=== PATIENT | female | born 1960 | race Two or more races ===

== ENCOUNTER 2019-07-10 12:02 | Emergency (ER) | payer BC ==
[2019-07-10 12:19] VITALS: BMI 27.2
--- NOTE | 2019-07-10 12:19 | PDOC ---
Rapid Medical Evaluation Time Seen by Provider: 07/10/19 12:15 Medical Evaluation: 07/10/19 12:15 I have performed a brief in-person evaluation of this patient. The patient presents with a chief complaint of: "not feeling well like I'm going to faint x month, worse today, feel weak" Hx of HTN. Denies CP/SOB/ vertigo, f/n/v/d Pertinent physical exam findings: well appearing, tachy to 115 I have ordered the following: labs The patient will proceed to the ED for further evaluation. Discharge Disposition - Diagnosis Weakness - Referrals - Patient Instructions - Post Discharge Activity
[2019-07-10 13:07] LABS: BASO % 0.9 % (0-2.0); EOS % 1.7 % (0-4.5); HEMATOCRIT 44.5 % (32.4-45.2); HEMOGLOBIN 14.9 GM/dL (10.7-15.3); LYMPH % 40.7 % (8-40); MCH 31.1 pg (25.7-33.7); MCHC 33.4 g/dl (32.0-36.0); MEAN CELL VOLUME 93.2 fl (80-96); MEAN PLT VOLUME 7.7 fl (7.5-11.1); MONO % 8.5 % (3.8-10.2); NEUT % 48.2 % (42.8-82.8); PLATELET COUNT 341 K/MM3 (134-434); RBC 4.78 M/mm3 (3.60-5.2); WHITE BLOOD COUNT 5.7 K/mm3 (4.0-10.0)
[2019-07-10 13:28] LABS: ALBUMIN 4.1 g/dl (3.4-5.0); BILIRUBIN,TOTAL 0.6 mg/dL (0.2-1); BLOOD UREA NITROGEN 13.5 mg/dL (7-18); CALCIUM 9.6 mg/dL (8.5-10.1); POTASSIUM 3.6 mmol/L (3.5-5.1); TOT PROT 7.4 g/dl (6.4-8.2)
--- NOTE | 2019-07-10 13:30 | PDOC ---
History of Present Illness - General Chief Complaint: Lightheaded Stated Complaint: WEAKNESS Time Seen by Provider: 07/10/19 12:15 History Source: Patient Exam Limitations: No Limitations - History of Present Illness Initial Comments: 07/10/19 13:30 Janel Evangelista is a 58F with PMH HTN on HCTZ 12.5mg presenting with an episode of lightheadedness this morning. 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 After walking back upstairs and before sitting down at her desk, she felt an episode of lightheadedness. Denies chest pain, SOB, room-spinning vertigo, muscle weakness, fever, abd pain, urinary symptoms, N/V, C/D. Generally feels much better at this time. Had an episode very similar to this last month, went to see her PMD who referred her to a career development specialist, but she has not had a chance to go. Denies other PMH other than HTN, on HCTZ 12.5mg for the last few years without dose changes, has tolerated well. Says she is eating and drinking without issues , no report of weight loss. Had a tooth implant a few weeks ago that is not yet completed, periodically had L ear sensation of something inside ear. Past History - Past Medical History Allergies/Adverse Reactions: Allergies Allergy/AdvReac Type Severity Reaction Status Date / Time No Known Allergies Allergy Verified 07/10/19 12:19 COPD: No HTN: Yes - Immunization History Immunization Up to Date: No - Psycho Social/Smoking Cessation Hx Smoking History: Never smoked Have you smoked in the past 12 months: No Information on smoking cessation initiated: No Hx Alcohol Use: No Drug/Substance Use Hx: No Review of Systems - Review of Systems Constitutional: No: Symptoms Reported HEENTM: No: Symptoms Reported Respiratory: No: Symptoms reported Cardiac (ROS): Yes: Lightheadedness. No: Chest Pain, Irregular Heart Rate, Palpitations, Syncope ABD/GI: No: Constipated, Diarrhea, Nausea, Vomiting : No: Symptoms Reported Musculoskeletal: No: Symptoms Reported Integumentary: No: Symptoms Reported Neurological: No: Headache, Numbness, Paresthesia, Weakness Endocrine: No: Symptoms Reported Hematologic/Lymphatic: No: Symptoms Reported All Other Systems: Reviewed and Negative *Physical Exam - Vital Signs Last Vital Signs Temp Pulse Resp BP Pulse Ox 98.0 F 115 H 16 168/99 99 07/10/19 12:16 07/10/19 12:16 07/10/19 12:16 07/10/19 12:16 07/10/19 12:16 - Physical Exam General Appearance: Yes: Nourished, Appropriately Dressed. No: Apparent Distress HEENT: positive: EOMI, YOUSIF, Normal ENT Inspection, Normal Voice, Symmetrical, Pharynx Normal. negative: Photophobia, Scleral Icterus (R), Scleral Icterus (L) , Pharyngeal Erythema, Tonsillar Exudate Neck: positive: Normal Thyroid, Supple. negative: Tender, Lymphadenopathy (R), Lymphadenopathy (L) Respiratory/Chest: positive: Lungs Clear, Normal Breath Sounds. negative: Chest Tender, Respiratory Distress, Accessory Muscle Use, Crackles, Rales, Rhonchi, Stridor Cardiovascular: positive: Regular Rhythm, Regular Rate Gastrointestinal/Abdominal: positive: Normal Bowel Sounds, Flat, Soft. negative : Tender, Organomegaly Musculoskeletal: positive: Normal Inspection Extremity: positive: Normal Capillary Refill, Normal Inspection, Normal Range of Motion. 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 NML intact, Fully Oriented, Alert, Normal Mood/ Affect, Normal Response, Motor Strength 5/5, Other (gait normal to tiptoe and heel gait) ED Treatment Course - LABORATORY CBC & Chemistry Diagram: 07/10/19 12:46 07/10/19 12:46 - ADDITIONAL ORDERS Additional order review: Laboratory Results 07/10/19 12:46 Sodium 140 Potassium 3.6 Chloride 104 Carbon Dioxide 25 Anion Gap 10 BUN 13.5 Creatinine 1.0 Est GFR (CKD-EPI)AfAm 70.91 Est GFR (CKD-EPI)NonAf 61.19 Random Glucose 131 H Calcium 9.6 Total Bilirubin 0.6 AST 16 ALT 29 Alkaline Phosphatase 94 Total Protein 7.4 Albumin 4.1 07/10/19 12:46 RBC 4.78 MCV 93.2 MCHC 33.4 RDW 13.0 MPV 7.7 Neutrophils % 48.2 Lymphocytes % 40.7 H Monocytes % 8.5 Eosinophils % 1.7 Basophils % 0.9 Medical Decision Making - Medical Decision Making 07/10/19 13:30 Janel Evangelista is a 58F with PMH HTN on HCTZ 12.5mg presenting with an episode of lightheadedness this morning. Presentation concerning for cardiac etiology i.e. arrhythmia vs. GA vs. PE. Given tachycardia, concerned for PE in particular, unable to PERC out 2/2 age, tachycardia places patient at low risk by [place], good candidate for d-dimer. Neurological symptoms less likely, no neurological symptoms concerning. Most likely dehydration vs. malnutrition vs. orthostatic hypotension. Evaluated already via: CMP CBC CP ECG Given 1L NS for tachycardia. 07/10/19 15:30 Tachycardia improved to 90s. Ordered d-dimer. All other labs and UA WNL. Needs 2nd trop and can likely be discharged home with cards f/u. 07/10/19 16:54 3 hour troponin also negative. D-dimer 354, WNL. Discussed results with patient and gave referral to career development specialist Dr. Jimenez. Patient understand importance of f/u. Discussed etiologies of weakness, including dehydration, malnutrition, orthostatics. Patient concerned about anxiety, requests calming pill. Advised that we are still unclear of etiology of weakness, needs cardiology workup and can be prescribed anxiolytics if medical causes ruled out. Patient accepts this plan and is stable for discharge home with card f/u. Discharge - Discharge Information Problems reviewed: Yes Clinical Impression/Diagnosis: Weakness Condition: Stable Disposition: HOME - Admission No - Follow up/Referral Referrals: Darryl Jimenez MD [Staff Physician] - - Patient Discharge Instructions Patient Printed Discharge Instructions: DI for Syncope in Adults (Fainting) Additional Instructions: Today you were evaluated for an episode of lightheadedness. We have done blood labs that do not show any evidence of anemia, infection, or electrolyte abnormalities. Your ECG does now show evidence of a heart attack at this time. You urine does not show any evidence of a UTI or other issue. Your lightheadedness is either related to an underlying heart disease or dehydration. Please remember to stay hydrated, and we have included a referral to see a career development specialist Dr. Jimenez. Please follow-up with your primary doctor in the next 3 days for further care, and with your career development specialist in the next 7 days. If you experience chest pain, shortness of breath, dizziness, lose consciousness, fever, abdominal pain, or any other new or concerning symptoms, please return to the emergency room immediately. - Post Discharge Activity
[2019-07-10] MEDS ORDERED: SODIUM CHLORIDE 1,000 ML IV STA (14:39)
[2019-07-10 15:17] LABS: URINE APPEARANCE CLEAR; URINE BILIRUBIN NEGATIVE (NEGATIVE); URINE COLOR YELLOW; URINE GLUCOSE (UA) NEGATIVE (NEGATIVE); URINE KETONE NEGATIVE (NEGATIVE); URINE LEUK ESTERASE NEGATIVE (NEGATIVE); URINE NITRITE NEGATIVE (NEGATIVE); URINE PROTEIN NEGATIVE (NEGATIVE); URINE UROBILINOGEN 0.2 mg/dL (0.2-1.0)
--- NOTE | 2019-07-10 15:34 | PDOC ---
Documentation entered by Anna Chamberlain SCRIBE, acting as scribe for Eliana Blackburn MD. Eliana Blackburn MD: This documentation has been prepared by the Bulmaro diaz Adrianna, SCRIBE, under my direction and personally reviewed by me in its entirety. I confirm that the documentation accurately reflects all work, treatment, procedures, and medical decision making performed by me. Attending Attestation - Resident Resident Name: Oscar Felipe - ED Attending Attestation I have performed the following: I have examined & evaluated the patient, The case was reviewed & discussed with the resident, I agree w/resident's findings & plan, Exceptions are as noted - HPI HPI: The patient is a 58 year old female, with a significant PMH of HTN, who presents to the ED for evaluation of pre-syncopal episode earlier today. Patient notes she was sitting down at work earlier today, when she suddenly felt lightheaded, as if she was going to pass out. She denies any LOC and can fully recall the event. Patient reports one episode of similar symptoms a month back, for which her PCP recommended blood work which she has not gotten drawn yet. She denies associated fever, chills, chest pain, SOB, palpitations, nausea , vomit, diarrhea, constipation, dysuria, hematuria, vertigo, LE edema, visual sxs, focal weakness/numbness. DEnies recent travel or immobility. Allergies: NKA, NKDA Surgical History: None reported Social History: Denies EtOH, tobacco, or illicit drug use PCP: NOS - Physicial Exam PE: GENERAL: Awake, alert, and fully oriented, in no acute distress EYES: PERRLA, EOMI, sclera anicteric, conjunctiva clear ENT: Nares patent, oropharynx clear without exudates. Moist mucosa NECK: Normal ROM, supple, no lymphadenopathy, JVD, or masses LUNGS: Breath sounds equal, clear to auscultation bilaterally. No wheezes, and no crackles HEART: Regular rate and rhythm, rate 98, normal S1 and S2, no murmurs, rubs or gallops ABDOMEN: Soft, nontender, normoactive bowel sounds. No guarding, no rebound. No masses EXTREMITIES: Normal range of motion, no edema. No cords, erythema, or tenderness NEUROLOGICAL: Normal speech, cranial nerves intact, 5/5 strength in all 4 extremities, normal sensation to light touch in all 4 extremities, normal cerebellar exam, normal gait, normal tone SKIN: Warm, Dry, normal turgor, no rashes or lesions noted. - Medical Decision Making 07/10/19 15:32 58yo F hx HTN prsents to the ED with 1 month of intermittent lightheadedness, generalized malaise and 2 episodes of pre-syncope, most recently today after she sat down at her desk at work. Vitals remarkable for tachycardia to 115 Exam wnl EKG sinus tachycardia DDx includes dehydration vs metabolic disarray vs PE vs ACS Plan for labs including tropx2, dimer, UA, CXR, IVF, reassess 07/10/19 17:44 Pt is feeling significantly better after IVF LAbs including trop x2, dimer all negative Possible dehydration Rpt HR 100 on my check, pt states she often has high HR in healthcare setting due to anxiety REcommended that she f/u with her PMD for further w/u of her lightheadedness and pre-syncope Also, referred to cardiology for her presenting sxs Pt in agreement with plan, is eager for discharge. She is clinically stable for DC home Heart Score/ECG Review - History History: Slightly suspicious - Electrocardiogram EKG: Non specific repolarization disturbance - Age Age: 45-65 - Risk Factors Based on the list above the patient has:: 1-2 risk factors - Troponin Troponin: </= normal limit - Score Heart Score - Total: 3 #1 07/10/19 14:42 EKG read and int by me: Sinus tachycardia, rate 110. Normal axis. No MARYAN
[2019-07-10 17:09] VITALS: BP 147/91; PULSE 110; TEMP 97.4
--- NOTE | 2019-07-11 12:55 | EKG ---
Test Reason : Blood Pressure : / mmHG Vent. Rate : 110 BPM Atrial Rate : 110 BPM P-R Int : 182 ms QRS Dur : 096 ms QT Int : 348 ms P-R-T Axes : 031 045 006 degrees QTc Int : 470 ms POOR DATA QUALITY, INTERPRETATION MAY BE ADVERSELY AFFECTED SINUS TACHYCARDIA POSSIBLE LEFT ATRIAL ENLARGEMENT CANNOT RULE OUT INFERIOR INFARCT , AGE UNDETERMINED NONSPECIFIC ST ABNORMALITY ABNORMAL ECG NO PREVIOUS ECGS AVAILABLE Confirmed by CRISTINA BURDEN, KIMBERLEY ([id number]) on 07/11/2019 12:55:35 PM Referred By: Confirmed By:KIMBERLEY EVANS MD
== END 2019-07-10 17:50 | disposition home or self-care (01) ==
LOC: JER 12:02
PROC: 3E0337Z Introduction of Electrolytic and Water Balance Substance into Peripheral Vein, Percutaneous Approach (ICD-10-PCS; principal; 2019-07-10)
DX: R53.1 Weakness (principal); R42 Dizziness and giddiness; I10 Essential (primary) hypertension
CPT/HCPCS: 36415; 80053; 81003; 82550; 82553; 84484; 85025; 85379; 87077; 87086; 93005; 93010; 99283-25; J7030